=== PATIENT | female | born 1980 | race African-American/Black ===

== ENCOUNTER → 2016-11-09 | Outpatient (CLI) | payer BC ==
--- NOTE | 2016-11-09 11:31 | RAD ---
DATE: 11/09/16 EXAM: Digital diagnostic left mammogram and left breast ultrasound HISTORY: History of right breast cancer, status post right mastectomy. COMPARISON: Diagnostic left mammogram from 11/07/15 This study was interpreted with the benefit of Computerized Aided Detection (CAD). Diagnostic left mammogram: Technique: CC, MLO, 90 degree mediolateral as well as CC spot compression views of the left breast are obtained. Diagnostic left mammogram Findings: The breast tissue density is [B ] . Scattered fibroglandular densities are seen. There is a apparently new asymmetric density in the retroareolar, somewhat medial left breast which somewhat persists on spot compression and 90 mediolateral view. No architectural distortion or suspicious calcification is seen. Skin and nipple is intact. Ultrasound to follow. Left breast ultrasound discussion: Targeted sonographic evaluation of the left breast is performed around the nipple and in the left axilla. Normal fibroglandular densities are seen. No solid or cystic mass lesions are identified. IMPRESSION: Asymmetric density in the retroareolar somewhat medial left breast is seen on the diagnostic mammogram. No definite sonographic abnormality seen. Six-month follow-up left breast mammogram may be obtained to ensure interval stability. BI-RADS CATEGORY: 3 PROBABLE BENIGN-SHORT TERM F/U RECOMMENDED FOLLOW-UP: 6M 6 MONTH FOLLOW-UP PQRS compliance statement: Patient information was entered into a reminder system with a target due date for the next mammogram. Mammography is a sensitive method for finding small breast cancers, but it does not detect them all and is not a substitute for careful clinical examination. A negative mammogram does not negate a clinically suspicious finding and should not result in delay in biopsying a clinically suspicious abnormality. "Our facility is accredited by the [employer] Mammography [employer]."
== END | disposition home or self-care (01) ==
LOC: MAMMO 10:31
PROVIDERS: ATTEND Internal Medicine Hematology & Oncology
DX: C50.211 Malignant neoplasm of upper-inner quadrant of right female breast (principal); R92.8 Other abnormal and inconclusive findings on diagnostic imaging of breast; Z90.11 Acquired absence of right breast and nipple
CPT/HCPCS: 76641; G0206; 77065

== ENCOUNTER → 2017-05-10 | Outpatient (CLI) | payer BC ==
--- NOTE | 2017-05-10 13:07 | RAD ---
DATE: 05/10/2017 EXAM: DIGITAL DIAGNOSTIC LT HISTORY: Follow-up suspicious density COMPARISON: 11/09/2016, 11/07/2015 This study was interpreted with the benefit of Computerized Aided Detection (CAD). The breast parenchyma is heterogeneously dense, which could reduce sensitivity of mammography. Breast parenchyma level C. FINDINGS: There are heterogeneous densities centrally in the left breast. No new or enlarging breast densities seen. These densities appear to be unchanged since older studies such as 09/20/2014 and 09/17/2013. No suspicious microcalcifications are identified. Benign-appearing lymph node type densities are present in the left axillary region. IMPRESSION: Stable mammograms without evidence of malignancy. BI-RADS CATEGORY: 2 BENIGN FINDING(S) RECOMMENDED FOLLOW-UP: 12M 12 MONTH FOLLOW-UP PQRS compliance statement: Patient information was entered into a reminder system with a target due date for the next mammogram. Mammography is a sensitive method for finding small breast cancers, but it does not detect them all and is not a substitute for careful clinical examination. A negative mammogram does not negate a clinically suspicious finding and should not result in delay in biopsying a clinically suspicious abnormality. "Our facility is accredited by the [employer] Mammography [employer]."
== END | disposition home or self-care (01) ==
LOC: MAMMO 12:54
PROVIDERS: ATTEND Internal Medicine Hematology & Oncology
DX: C50.211 Malignant neoplasm of upper-inner quadrant of right female breast (principal)
CPT/HCPCS: G0206; 77065

== ENCOUNTER → 2018-05-06 | Outpatient (CLI) | payer BC | END | disposition home or self-care (01) | LOC: MAMMO 14:17 | DX: C50.211 Malignant neoplasm of upper-inner quadrant of right female breast (principal); Z17.0 Estrogen receptor positive status [ER+] | CPT/HCPCS: 77065 ==

== ENCOUNTER → 2019-04-22 | Outpatient (CLI) | payer BC ==
--- NOTE | 2019-04-22 10:21 | RAD ---
DATE: 04/22/2019. EXAM: DIGITAL DIAGNOSTIC LT HISTORY: History of right breast cancer status post mastectomy. COMPARISON: Previous mammogram from 2018. This study was interpreted with the benefit of Computerized Aided Detection (CAD). FINDINGS: Breast Density: HETERO The breast parenchyma Is heterogeneously dense, which could reduce sensitivity of mammography. Breast parenchyma level C. The skin and nipple are within normal limits. No suspicious calcifications, spiculated mass or area of architectural distortion. IMPRESSION: No mammographic evidence of malignancy. Stable mammogram. BI-RADS CATEGORY: 2 BENIGN FINDING(S) RECOMMENDED FOLLOW-UP: 12M 12 MONTH FOLLOW-UP PQRS compliance statement: Patient information was entered into a reminder system with a target due date for the next mammogram. Mammography is a sensitive method for finding small breast cancers, but it does not detect them all and is not a substitute for careful clinical examination. A negative mammogram does not negate a clinically suspicious finding and should not result in delay in biopsying a clinically suspicious abnormality. "Our facility is accredited by the [employer] Mammography [employer]."
== END | disposition home or self-care (01) ==
LOC: MAMMO 14:16
PROVIDERS: ATTEND Internal Medicine Hematology & Oncology
DX: Z08 Encounter for follow-up examination after completed treatment for malignant neoplasm (principal); Z85.3 Personal history of malignant neoplasm of breast; Z90.11 Acquired absence of right breast and nipple
CPT/HCPCS: 77065

== ENCOUNTER → 2019-11-20 | Outpatient (CLI) | payer BC ==
--- NOTE | 2019-11-20 16:26 | RAD ---
Study: US CHEST Indication: Chest wall discomfort. Provided history of right breast mastectomy and reconstruction. Comparison: None. Technique: Targeted sonographic evaluation is performed in the region of concern. Findings: At the location of the patient's pain at the anterior chest wall, no mass or fluid collection is identified. Unremarkable echotexture of the subcutaneous tissues. The breasts are not fully evaluated. Impression: No sonographic abnormality is seen at the region of concern. Specifically, no mass, fluid collection or sonographic findings of regional inflammation. Electronically signed by: RA HOOD MD (11/20/2019 4:23 PM) [id number]
== END | disposition home or self-care (01) ==
LOC: US 15:33
PROVIDERS: ATTEND Internal Medicine Hematology & Oncology
DX: C50.211 Malignant neoplasm of upper-inner quadrant of right female breast (principal); Z17.0 Estrogen receptor positive status [ER+]; Z98.890 Other specified postprocedural states
CPT/HCPCS: 76604